=== PATIENT | female | born 1985 | race Caucasian/White ===

== ENCOUNTER → 2020-04-22 12:18 | Outpatient (CLI) | payer OTHER, SELFPAY ==
--- NOTE | 2020-04-22 12:22 | DI.RAD.S_ITS ---
PROCEDURE: XR TIBIA FIBULA RT 2V INDICATIONS: knee contusion, pain/swelling, r/o bony abnormality TECHNIQUE: 2 views of the tibia and fibula were acquired. COMPARISON: [facility], CR, XR KNEE LT 3V, 04/22/2020, 12:17. FINDINGS: Bones: No fractures or dislocations. No suspicious bony lesions. Soft tissues: No suspicious soft tissue calcifications or masses. IMPRESSION: No acute osseous abnormality. Dictated by: Jarrell Muhammad M.D. on 04/22/2020 at 12:43 Approved by: Jarrell Muhammad M.D. on 04/22/2020 at 12:43
--- NOTE | 2020-04-22 12:22 | DI.RAD.S_ITS ---
PROCEDURE: XR KNEE LT 3V INDICATIONS: knee contusion, pain/swelling, r/o bony abnormality TECHNIQUE: 3 views of the knee were acquired. COMPARISON: [facility], CR, XR TIBIA FIBULA LT 2V, 04/22/2020, 12:17. FINDINGS: Bones: No fractures or dislocations. There is a small lucency in the distal femur along the anterior cortex above the intercondylar notch. Soft tissues: No joint effusion. No suspicious soft tissue calcifications. IMPRESSION: 1. No fracture or dislocation. 2. A small lucency is noted in the distal femur along the anterior cortex above the intercondylar notch, most likely a bone cyst. If there is focal pain and tenderness, a follow-up examination or bone scan is suggested. Dictated by: Jarrell Muhammad M.D. on 04/22/2020 at 12:39 Approved by: Jarrell Muhammad M.D. on 04/22/2020 at 12:42
== END ==
PROVIDERS: PCP Family Medicine; Referring Provider Physician Assistant; Visit Provider Physician Assistant
DX: S80.02XA Contusion of left knee, initial encounter (principal); M25.562 Pain in left knee; X58.XXXA Exposure to other specified factors, initial encounter
CPT/HCPCS: 73562; 73590

== ENCOUNTER 2020-05-26 18:15 | Observation (INO) | payer OTHER, SELFPAY ==
[2020-05-26] VITALS (13 sets, daily range): BP systolic 116–137; BP diastolic 60–84; PULSE 89–126; RESP 9–23; TEMP 36.7–37.3; O2SAT 95–100; BMI 18.2; BMI 14.7
--- NOTE | 2020-05-26 18:37 | ED.GENADULT ---
HPI - General Adult General Chief complaint: Abdominal Pain Stated complaint: Severe Abd Pain Time Seen by Provider: 05/26/20 18:23 Source: patient Mode of arrival: Ambulatory Limitations: no limitations History of Present Illness HPI narrative: 34-year-old otherwise healthy female here for evaluation of lower bilateral right greater than left abdominal pain. She states that her pain started this morning shortly after she woke up. Went to bed last evening without any symptoms. Has had nausea but no vomiting. No prior abdominal surgeries. Has had multiple bowel movements today that did not change her abdominal pain. It was not diarrhea. She states that they were normal stools just more than what she normally would have an a 24 hour.. No urinary symptoms. No vaginal bleeding. Has not done anything for symptoms prior to arrival. Denied the need for pain and/or nausea medication. Related Data Home Medications Medication Instructions Recorded Confirmed levonorgestrel 20 mcg/24 hours (5 INTRAUTERINE 08/15/19 04/22/20 yrs) 52 mg intrauterine device loratadine 10 mg tablet 10 mg PO DAILY 08/15/19 04/22/20 Allergies Allergy/AdvReac Type Severity Reaction Status Date / Time peanut Allergy Unknown Verified 04/22/20 13:43 Penicillins Allergy Unknown Verified 04/22/20 13:43 tree nut Allergy Unknown Verified 04/22/20 13:43 Review of Systems Constitutional Constitutional: Denies fever(s) Cardiovascular Cardiovascular: Denies chest pain and Denies dyspnea Respiratory Respiratory: Denies dyspnea Gastrointestinal Gastrointestinal: Reports abdominal pain, Denies constipation, Denies diarrhea, Reports nausea and Denies vomiting Genitourinary Genitourinary: Denies dysuria Genitourinary: Denies dysuria Musculoskeletal Musculoskeletal: Denies arthralgias and Denies myalgias Integumentary/Breasts Skin/Breast: Denies rash Neurologic Neurologic: Denies behavioral changes Psychiatric Psychiatric: Denies behavioral changes Hematologic/Lymphatic Hematologic/Lymphatic: Denies easy bleeding and Denies easy bruising Allergic/Immunologic Allergic/Immunologic: Denies urticaria Patient History Medical History Abnormal endoscopy of upper gastrointestinal tract (Acute) Contusion, lower leg (Acute) Esophageal dilatation (Acute) Esophageal stricture (Acute) Family history of breast cancer in first degree relative (Acute) Knee contusion (Acute) Rosacea (Acute) Family History (Updated 08/15/19 @ 15:17 by Clifford Foley DO) Mother Cancer Father No problems noted. Social History Smoking Status: Former smoker Tobacco: How many years used: 5 alcohol intake: current (1-2 wine glasses/day ) Smoking Status: Former smoker alcohol intake frequency: 0-2 drinks per day Substance Use Type: does not use Exam Initial Vital Signs Initial Vital Signs: Vital Signs Temperature 98.0 F 05/26/20 18:30 Pulse Rate 126 H 05/26/20 18:30 Respiratory Rate 16 05/26/20 18:30 Blood Pressure 137/84 05/26/20 18:30 Pulse Oximetry 100 05/26/20 18:30 Const General: cooperative, comfortable, well developed and well groomed Limitations: mental status not altered HENMT Head: normal to inspection and normocephalic Resp Effort & Inspection: normal respiratory effort Auscultation: clear to auscultation bilaterally Cardio Rate: tachycardic Pulses: radial pulses present GI Inspection: non-distended Palpation: soft and tender (Bilateral lower abdomen with guarding no rebound) Skin Lesions: no lesions Rashes: no rashes Neuro General: patient alert, patient awake and patient oriented x3 Cognition: normal cognition Speech: speech normal Extrem General: normal to inspection and capillary refill normal Psych Appearance: grossly normal and well kempt Course Orders Ordered: ED Orders 05/26/20 18:19 EKG-12 Lead Stat 05/26/20 18:37 CT abdomen pelvis w con Stat 05/26/20 18:53 Complete Blood Count AUTO DIFF Stat Comprehensive Metabolic Panel Stat Lactate (Lactic Acid) Stat Lipase Stat Magnesium Routine Partial Thromboplastin Time Stat Procalcitonin Stat Prothrombin Time INR Stat 05/26/20 20:12 US pelvic complete Stat 05/26/20 22:11 Consult to General Surgery Stat 05/26/20 22:25 Consult to Obstetrics Stat 05/26/20 22:30 Blood Culture Stat 05/26/20 22:58 COVID19 -ED/INPAT/OR/L&D Stat 05/26/20 23:06 Consult to Dietitian, Adult Routine Consult to Discharge Planning Routine 05/27/20 05:00 Basic Metabolic Panel Routine Complete Blood Count AUTO DIFF Routine Hydromorphone HCl (Dilaudid) 0.5 mg IV Q6HR PRN PRN Reason: Pain, Moderate (4-6) Hydromorphone HCl (Dilaudid) 1 mg IV Q6HR PRN PRN Reason: Pain, Severe (7-10) Lactated Ringer's (Lactated Ringers) 1,000 mls @ 100 mls/hr IV CONT DANIEL Ceftriaxone Sodium/Dextrose (Rocephin) 2 gm in 50 mls @ 100 mls/hr IV Q24H DANIEL Ketorolac Tromethamine (Toradol) 15 mg IV Q6HR PRN PRN Reason: Pain, Moderate (4-6) Stop: 05/31/20 23:04 Naloxone HCl (Narcan) 0.2 mg IV Q2MIN PRN PRN Reason: Opiate Reversal Ondansetron HCl (Zofran) 4 mg IV Q6HR PRN PRN Reason: Nausea And Vomiting Discontinued Medications Sodium Chloride (Normal Saline 0.9%) 1,000 mls @ 1,000 mls/hr IV BOLUS ONE Stop: 05/26/20 19:36 Last Infusion: 05/26/20 21:48 Dose: 0 mls/hr Documented by: Admin: 05/26/20 19:32 Dose: 1,000 mls/hr Documented by: LISA Sodium Chloride (Normal Saline 0.9%) 1,000 mls @ 125 mls/hr IV CONT DANIEL Last Admin: 05/26/20 22:38 Dose: 125 mls/hr Documented by: YE Ceftriaxone Sodium/Dextrose (Rocephin) 1 gm in 50 mls @ 100 mls/hr IV NOW ONE Stop: 05/26/20 23:09 Last Admin: 05/26/20 22:46 Dose: 100 mls/hr Documented by: YE Ketorolac Tromethamine (Toradol) 30 mg IV NOW ONE Stop: 05/26/20 22:34 Last Admin: 05/26/20 22:42 Dose: 30 mg Documented by: YE Morphine Sulfate (Morphine) 4 mg IV NOW ONE Stop: 05/26/20 20:38 Last Admin: 05/26/20 20:40 Dose: 4 mg Documented by: LISA Vital Signs Vital signs: Vital Signs - 8 hr 05/26/20 18:30 05/26/20 19:00 05/26/20 19:03 Temperature 98.0 F Pulse Rate 126 H 105 H Respiratory Rate 16 12 Blood Pressure 137/84 125/72 Pulse Oximetry 100 99 05/26/20 19:30 05/26/20 20:00 05/26/20 20:30 Temperature Pulse Rate 103 H 104 H 109 H Respiratory Rate 9 L 13 15 Blood Pressure Pulse Oximetry 100 100 100 05/26/20 21:00 05/26/20 21:48 05/26/20 22:30 Temperature Pulse Rate 109 H 112 H 106 H Respiratory Rate 17 17 19 Blood Pressure Pulse Oximetry 98 97 97 05/26/20 22:56 05/26/20 23:00 Temperature Pulse Rate 96 H 93 H Respiratory Rate 23 19 Blood Pressure 116/76 116/72 Pulse Oximetry 96 95 Medical Decision Making Lab Data Lab results reviewed: Yes I reviewed the patient's lab results. Result diagrams: 05/26/20 18:53 05/26/20 18:53 Labs: Lab Results 05/26/20 05/26/20 05/26/20 Range/Units 18:53 18:53 18:53 WBC 17.5 H (4.5-11.0) X10^3/uL RBC 4.43 (4.0-5.2) X10^6/uL Hgb 14.3 (12.0-16.0) g/dL Hct 41.1 (36-46) % MCV 92.7 (80-100) fL MCH 32.2 (26-34) PG MCHC 34.7 (30-36) % RDW 11.4 L (11.6-14.8) % Plt Count 233 (150-400) X10^3/uL Neut % (Auto) 87.3 H (50-75) % Lymph % (Auto) 8.8 L (25-40) % [place] % (Auto) 3.3 (3-14) % Eos % (Auto) 0.3 L (2-4) % Baso % (Auto) 0.3 (0-2) % Neut # (Auto) 59347 H (8558-3384) /uL Lymph # (Auto) 1500 (2535-6829) /uL [place] # (Auto) 600 (0-900) /uL Eos # (Auto) 100 (0-450) /uL Baso # (Auto) 100 (0-100) /uL PT 12.4 (10.1-12.7) SECONDS INR 1.1 (0.9-1.3) APTT 31 (26.4-36.2) SECONDS Sodium 137 (137-145) mmol/L Potassium 3.7 (3.4-5.1) mmol/L Chloride 101 (98-107) mmol/L Carbon Dioxide 27 (22-32) mmol/L BUN 12 (7-17) mg/dL Creatinine 0.70 (0.52-1.04) mg/dL Estimated GFR > 60.0 (>60) mL/min BUN/Creatinine Ratio 17.1 (6-22) Glucose 109 H (70-100) mg/dL Lactate (0.7-2.1) mmol/L Calcium 9.5 (8.4-10.2) mg/dL Magnesium (1.6-2.3) mg/dL Total Bilirubin 2.1 H (0.2-1.3) mg/dL AST 25 (14-36) IU/L ALT 15 (<35) IU/L Alkaline Phosphatase 74 (38-126) U/L Total Protein 8.0 (6.3-8.2) g/dL Albumin 4.9 (3.5-5.0) g/dL Globulin 3.1 (1.7-4.1) g/dL Albumin/Globulin Ratio 1.6 (1.0-2.8) Lipase 49 (23-300) U/L Procalcitonin (<0.5) ng/mL COVID-19 PCR (Negative) 05/26/20 05/26/20 05/26/20 Range/Units 18:53 18:53 18:53 WBC (4.5-11.0) X10^3/uL RBC (4.0-5.2) X10^6/uL Hgb (12.0-16.0) g/dL Hct (36-46) % MCV (80-100) fL MCH (26-34) PG MCHC (30-36) % RDW (11.6-14.8) % Plt Count (150-400) X10^3/uL Neut % (Auto) (50-75) % Lymph % (Auto) (25-40) % [place] % (Auto) (3-14) % Eos % (Auto) (2-4) % Baso % (Auto) (0-2) % Neut # (Auto) (4659-1608) /uL Lymph # (Auto) (9858-9348) /uL [place] # (Auto) (0-900) /uL Eos # (Auto) (0-450) /uL Baso # (Auto) (0-100) /uL PT (10.1-12.7) SECONDS INR (0.9-1.3) APTT (26.4-36.2) SECONDS Sodium (137-145) mmol/L Potassium (3.4-5.1) mmol/L Chloride (98-107) mmol/L Carbon Dioxide (22-32) mmol/L BUN (7-17) mg/dL Creatinine (0.52-1.04) mg/dL Estimated GFR (>60) mL/min BUN/Creatinine Ratio (6-22) Glucose (70-100) mg/dL Lactate 1.2 (0.7-2.1) mmol/L Calcium (8.4-10.2) mg/dL Magnesium 1.7 (1.6-2.3) mg/dL Total Bilirubin (0.2-1.3) mg/dL AST (14-36) IU/L ALT (<35) IU/L Alkaline Phosphatase (38-126) U/L Total Protein (6.3-8.2) g/dL Albumin (3.5-5.0) g/dL Globulin (1.7-4.1) g/dL Albumin/Globulin Ratio (1.0-2.8) Lipase (23-300) U/L Procalcitonin < 0.05 (<0.5) ng/mL COVID-19 PCR (Negative) 05/26/20 Range/Units 22:58 WBC (4.5-11.0) X10^3/uL RBC (4.0-5.2) X10^6/uL Hgb (12.0-16.0) g/dL Hct (36-46) % MCV (80-100) fL MCH (26-34) PG MCHC (30-36) % RDW (11.6-14.8) % Plt Count (150-400) X10^3/uL Neut % (Auto) (50-75) % Lymph % (Auto) (25-40) % [place] % (Auto) (3-14) % Eos % (Auto) (2-4) % Baso % (Auto) (0-2) % Neut # (Auto) (2675-2531) /uL Lymph # (Auto) (8452-4775) /uL [place] # (Auto) (0-900) /uL Eos # (Auto) (0-450) /uL Baso # (Auto) (0-100) /uL PT (10.1-12.7) SECONDS INR (0.9-1.3) APTT (26.4-36.2) SECONDS Sodium (137-145) mmol/L Potassium (3.4-5.1) mmol/L Chloride (98-107) mmol/L Carbon Dioxide (22-32) mmol/L BUN (7-17) mg/dL Creatinine (0.52-1.04) mg/dL Estimated GFR (>60) mL/min BUN/Creatinine Ratio (6-22) Glucose (70-100) mg/dL Lactate (0.7-2.1) mmol/L Calcium (8.4-10.2) mg/dL Magnesium (1.6-2.3) mg/dL Total Bilirubin (0.2-1.3) mg/dL AST (14-36) IU/L ALT (<35) IU/L Alkaline Phosphatase (38-126) U/L Total Protein (6.3-8.2) g/dL Albumin (3.5-5.0) g/dL Globulin (1.7-4.1) g/dL Albumin/Globulin Ratio (1.0-2.8) Lipase (23-300) U/L Procalcitonin (<0.5) ng/mL COVID-19 PCR Negative (Negative) Point of Care Testing Test Results Negative Urine Dip Bedside Urine Glucose Negative Bedside Urine Bilirubin - Negative Bedside Urine Ketone - Negative Urine Specific [place] 1.025 Bedside Urine Occult Blood - Negative Bedside Urine pH 6.0 Bedside Urine Protein +/- 15 Bedside Urine Urobilinogen - Negative Bedside Urine Nitrite - Negative Bedside Urine Leukocytes - Negative Esterase Point of care testing: Point of Care Testing Test Results Negative Urine Dip Bedside Urine Glucose Negative Bedside Urine Bilirubin - Negative Bedside Urine Ketone - Negative Urine Specific [place] 1.025 Bedside Urine Occult Blood - Negative Bedside Urine pH 6.0 Bedside Urine Protein +/- 15 Bedside Urine Urobilinogen - Negative Bedside Urine Nitrite - Negative Bedside Urine Leukocytes - Negative Esterase Imaging Data CT scan - abdomen/pelvis: Radiologist's Impression: [address] [address] [address] Scan Report Signed Patient: Kathia ChackoMR#: [id number] : 1985Acct:[id number] Age/Sex: 34 / FDate of Service: 05/26/20 Loc: ED Accession Number: [id number] Procedure: CT abdomen pelvis w con Ordering Provider: Robbie Diego D.O. PROCEDURE: CT ABDOMEN PELVIS W CON INDICATIONS: Right lower quadrant abdominal pain TECHNIQUE: After the administration of intravenous contrast, 5 mm thick sections acquired from the diaphragm to the symphysis. 5 mm coronal and sagittal reformats were acquired. For radiation dose reduction, the following was used: automated exposure control, adjustment of mA and/or kV according to patient size. COMPARISON: None. FINDINGS: Image quality: Excellent. ABDOMEN: Lung bases: Lung bases are clear. Heart size is normal. Solid organs: Liver is normal in size and enhancement. Gallbladder is normal . Biliary system is non dilated. Pancreas enhances normally. Spleen is normal in size and enhancement. No adrenal nodules. Kidneys demonstrate normal size and enhancement, without hydronephrosis. Peritoneum and bowel: Bowel loops demonstrate normal wall thickness and caliber. No free fluid or air. The appendix cannot be seen. Nodes and vessels: No retroperitoneal or mesenteric adenopathy by size criteria. Aorta and inferior vena cava are normal in size. Miscellaneous: No ventral hernias. PELVIS: Genitourinary: Bladder wall thickness is normal. There is a T-shaped IUD within the uterus. The adnexal vasculature is mildly engorged. Small to moderate amount of free fluid in the right posterior adnexa. Of thin-walled ovoid cyst is present in the posterior right adnexa measuring about 2.3 cm. Miscellaneous: No inguinal hernias or adenopathy. Bones: No suspicious bony lesions. No vertebral body compression fractures. IMPRESSION: 1. Probable right ovarian cyst rupture, however appendicitis is not excluded as the appendix is not visible. 2. Adequate position of intrauterine device. Dictated by: Elyssa Le M.D. on 05/26/2020 at 19:56 Approved by: Elyssa Le M.D. on 05/26/2020 at 20:00 US - TRANSFORMER ASSEMBLY SUPERVISOR: Radiologist's Impression: [address] [address] Ultrasound Report Signed Patient: Clemencia Chacko#: [id number] : 1985Acct:[id number] Age/Sex: 34 / FDate of Service: 05/26/20 Loc: ED Accession Number: [id number] Procedure: US pelvic complete Ordering Provider: Robbie Diego D.O. PROCEDURE: US PELVIC COMPLETE INDICATIONS: RIGHT LOWER QUADRANT PAIN TECHNIQUE: Real-time scanning was performed of the pelvic organs, with image documentation. Additional endovaginal scanning was necessary due to incomplete visualization of the adnexal and endometrial structures by transabdominal scanning. COMPARISON: None. FINDINGS: Transabdominal scanning: Limited scanning through the kidneys shows no hydronephrosis. No pathologic free abdominal or pelvic fluid. Endovaginal scanning: Uterus: Uterus is anteverted and normal in size at 7.1 x 3.4 x 4.9 cm. The endometrium measures 3.6 mm in combined thickness. An IUD is in place. Myometrial echotexture is normal. Ovaries: The right ovary measures 3.7 x 2.4 x 3.9 cm. Left ovary measures 3.2 x 1.5 x 2.9 cm. The right ovary contains a hemorrhagic involuting cyst with lace-like septations. There is adjacent hemorrhagic free fluid. The left ovary has a normal follicular echotexture. Normal vascularity in each ovary. There is a possible tubular structure with bowel signature in the right lower quadrant anteriorly. No surrounding echogenic fat. No hyperemia. This measures 6 mm in diameter but is noncompressible. IMPRESSION: 1. Hemorrhagic right ovarian cyst with adjacent fluid suggesting recent rupture. 2. Possible right lower quadrant appendix without convincing signs to suggest acute appendicitis. 3. IUD in satisfactory position. Dictated by: Elyssa Le M.D. on 05/26/2020 at 22:15 Approved by: Elyssa Le M.D. on 05/26/2020 at 22:20 ECG Data Attestation: I personally reviewed and interpreted this ECG as follows: Prior ECG tracings: not available for review Interpretation: Sinus tachycardia Ventricular rate of 111 Normal axis Normal QRS Normal QTC No ST T wave changes MDM Narrative Medical decision making narrative: Patient initially declined the need for pain or nausea medication. CT scan does not definitively see the appendix however does not have any secondary signs of appendicitis. There was some concern about a right ovary cyst and potentially recently ruptured cyst. A small amount of free fluid in the pelvis. An ultrasound was ordered to further evaluate this. vtc technician stated that initially she thought that she identify the appendix on the ultrasound. The formal report shows a noncompressible structure but no signs of infection. This is not 100% convincing that this was the appendix that was seen. 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 The ultrasound did confirm the right-sided ovarian cyst. Patient does have leukocytosis and is also tachycardic despite pain medication. Has right lower quadrant abdominal pain. I feel clinically appendicitis is still very likely. I discussed the case with Dr. Garcia was on-call for General surgery who agreed that the patient could be admitted for observation and serial abdominal exams. He has the patient be admitted to the medicine service. I also discussed the case with Dr. torres is on-call for receiving room clerk who agreed to see the patient tomorrow morning. I discussed the case with STEPHAN Irene the night hospital provider. We will admit for further evaluation and treatment for presumed early appendicitis. I did discuss all these findings with the patient. Discussed the need for the admission. She expressed understanding and agreement. Discharge Plan Departure Patient Disposition: Admitted as Observation Clinical Impression: Tachycardia Abdominal pain Qualifiers: Abdominal location: right lower quadrant Qualified Code(s): R10.31 - Right lower quadrant pain Leukocytosis Qualifiers: Leukocytosis type: unspecified Qualified Code(s): D72.829 - Elevated white blood cell count, unspecified Admit Date/Time: 05/26/20 23:07 Admit Provider: Harry Irene
[2020-05-26 19:06] LABS: Add Manual Diff / Slide Review NO; Basophils Absolute Auto 100 /uL (0-100); Basophils Percent Auto 0.3 % (0-2); Eosinophils Absolute Auto 100 /uL (0-450); Eosinophils Percent Auto 0.3 % (2-4); Hematocrit 41.1 % (36-46); Hemoglobin 14.3 g/dL (12.0-16.0); Lymphocytes Absolute Auto 1500 /uL (1100-4500); Lymphocytes Percent Auto 8.8 % (25-40); Mean Corpuscular HGB Conc 34.7 % (30-36); Mean Corpuscular Hemoglobin 32.2 PG (26-34); Mean Corpuscular Volume 92.7 fL (80-100); Monocytes Absolute Auto 600 /uL (0-900); Monocytes Percent Auto 3.3 % (3-14); Neutrophils Absolute Auto 15300 /uL (1500-7000); Neutrophils Percent Auto 87.3 % (50-75); Platelet Count 233 X10^3/uL (150-400); Red Blood Cell Count 4.43 X10^6/uL (4.0-5.2); Red Cell Distribution Width 11.4 % (11.6-14.8); White Blood Cell Count 17.5 X10^3/uL (4.5-11.0)
[2020-05-26 19:13] LABS: INR 1.1 (0.9-1.3); Prothrombin Time 12.4 SECONDS (10.1-12.7)
[2020-05-26 19:16] LABS: PTT Partial Thromboplastin Tim 31 SECONDS (26.4-36.2)
[2020-05-26 19:17] LABS: Alanine Aminotransferase 15 IU/L (<35); Albumin 4.9 g/dL (3.5-5.0); Albumin Globulin Ratio 1.6 (1.0-2.8); Alkaline Phosphatase 74 U/L (38-126); Aspartate Aminotransferase 25 IU/L (14-36); BUN Creatinine Ratio 17.1 (6-22); Bilirubin Total 2.1 mg/dL (0.2-1.3); Blood Urea Nitrogen 12 mg/dL (7-17); Calcium 9.5 mg/dL (8.4-10.2); Carbon Dioxide 27 mmol/L (22-32); Chloride 101 mmol/L (98-107); Estimated Glomerular Filt Rate > 60.0 mL/min (>60); Globulin 3.1 g/dL (1.7-4.1); Glucose 109 mg/dL (70-100); HEMOLYSIS 19 (0-50); Lipase 49 U/L (23-300); Potassium 3.7 mmol/L (3.4-5.1); Sodium 137 mmol/L (137-145)
[2020-05-26] MEDS: SODIUM CHLORIDE 0.9% 1,000 ML 1000 ML IV (19:32)
--- NOTE | 2020-05-26 20:12 | DI.US.S_ITS ---
PROCEDURE: US PELVIC COMPLETE INDICATIONS: RIGHT LOWER QUADRANT PAIN TECHNIQUE: Real-time scanning was performed of the pelvic organs, with image documentation. Additional endovaginal scanning was necessary due to incomplete visualization of the adnexal and endometrial structures by transabdominal scanning. COMPARISON: None. FINDINGS: Transabdominal scanning: Limited scanning through the kidneys shows no hydronephrosis. No pathologic free abdominal or pelvic fluid. Endovaginal scanning: Uterus: Uterus is anteverted and normal in size at 7.1 x 3.4 x 4.9 cm. The endometrium measures 3.6 mm in combined thickness. An IUD is in place. Myometrial echotexture is normal. Ovaries: The right ovary measures 3.7 x 2.4 x 3.9 cm. Left ovary measures 3.2 x 1.5 x 2.9 cm. The right ovary contains a hemorrhagic involuting cyst with lace-like septations. There is adjacent hemorrhagic free fluid. The left ovary has a normal follicular echotexture. Normal vascularity in each ovary. There is a possible tubular structure with bowel signature in the right lower quadrant anteriorly. No surrounding echogenic fat. No hyperemia. This measures 6 mm in diameter but is noncompressible. IMPRESSION: 1. Hemorrhagic right ovarian cyst with adjacent fluid suggesting recent rupture. 2. Possible right lower quadrant appendix without convincing signs to suggest acute appendicitis. 3. IUD in satisfactory position. Dictated by: Elyssa Le M.D. on 05/26/2020 at 22:15 Approved by: Elyssa Le M.D. on 05/26/2020 at 22:20
[2020-05-26] MEDS: MORPHINE 4 MG/ML INJ IV (20:40)
[2020-05-26 22:18] LABS: Lactate (Lactic Acid) 1.2 mmol/L (0.7-2.1)
[2020-05-26] MEDS: SODIUM CHLORIDE 0.9% 1,000 ML 125 ML IV (22:38)
[2020-05-26] MEDS: KETOROLAC 60 MG/2 ML VIAL 30 MG IV (22:42)
[2020-05-26] MEDS: CEFTRIAXONE 1 GM/50 ML FROZ.PIGGY IV (22:46)
[2020-05-26 23:21] LABS: Magnesium 1.7 mg/dL (1.6-2.3)
[2020-05-26 23:37] LABS: Procalcitonin < 0.05 ng/mL (<0.5)
[2020-05-26 23:50] LABS: COVID19 -Nasal RAPID Negative (Negative)
--- NOTE | 2020-05-27 | PM.HP.1 ---
History of Present Illness History of Present Illness Date Patient Seen: 05/26/20 Time Patient Seen: 23:31 Chief complaint: Severe Abd Pain Narrative: Ms. Kathia Chacko is a 34-year-old female with past medical history significant for eosinophilic esophagitis, esophageal stricture status post esophageal dilation (03/2018) and rosacea who presents to the emergency department with bilateral lower abdominal pain. The patient states she was feeling fine yesterday went to bed and with bilateral lower abdominal pain right greater left. She reports the pain is been progressive throughout the day until upon arrival her pain was at a 7/10. Pain was worsened by laying on either side was most comfortable lying on her back with these bed. She took no medications to treat her symptoms. She has had associated complaints of diaphoresis, possible chills and nausea without vomiting and general malaise. She has also had multiple bowel movements which is not characteristic for that she describes as normal in color and consistency. She denies complaints of urinary symptoms with no urgency, frequency or burning. She is sexually active and in a monogamous relationship. She has a indwelling jonas IUD and has had no vaginal bleeding or discharge. She reports no recent illness, headaches dizziness or visual changes. She has no known COVID-19 exposures. She denies complaints of chest pain or palpitations, shortness of breath cough or wheezing. She did have an episode of severe heartburn earlier today which has since resolved. The patient reports abdominal pain as above that is constant and nonradiating. She denies flank or suprapubic pain. She does acknowledge bilateral anterior thigh achiness that she has had previously in association her menstrual periods. At baseline she is fully independent in all ADLs. Upon arrival she has a temperature 98.0?, tachycardic 126, blood pressure 137/87, respirations 16, with an SpO2 of 100. A CT of the abdomen pelvis notes abdominal solid organs are normal appearance with no biliary dilatation and pancreas is normal size and enhancement, bowel loops are normal in all thickness and caliber, appendix is not visualized, bladder is normal, T shaped IUD noted within the uterus with small amount of free fluid in the right posterior adnexa with a 2.3 cm ovarian cyst. Pelvic ultrasound is obtained finding hemorrhagic right ovarian cyst with adjacent fluid suggestive recent rupture, possible tubular structure with bowel signature in the right lower quadrant anteriorly without surrounding echogenic fat or hyperemia measures 6 mm diameter and is noncompressible. On laboratory analysis the patient is found to have a white count of 17.5 with elevated neutrophils at 87.3, hemoglobin 14.3, hematocrit of 41.1 and platelets 233. She has a PT of 12.4, INR 1.1 and PTT of 30. Her electrolytes are all within normal range with a BUN of 12 and creatinine is 0.7. Her nonfasting glucose is 109. Patient has elevated bilirubin at 2.1, AST of 25, ALT of 15 and alkaline phosphatase of 74. Lipase is 49 and albumin is 4.9. Lactic acid is 1.2. Procalcitonin is negative at less than 0.05. Covidien creatinine is negative. In the ER the patient is given 1 L of normal saline followed by normal saline 125 cc/hour. She received morphine 4 mg and Toradol IV. She has reported childhood history of penicillin allergy and is started on Rocephin 1 g in the ER. Dr. Garcia is contacted through the emergency department for general surgery as well as Dr. shanks is contacted for OBGYN who both agreed to consult. The patient is admitted to the medicine service for abdominal pain with leukocytosis, possible appendicitis possible ruptured ovarian cyst. Patient History Medical History Abnormal endoscopy of upper gastrointestinal tract (Acute) Contusion, lower leg (Acute) Eosinophilic esophagitis (Acute) Esophageal stricture (Acute) Family history of breast cancer in first degree relative (Acute) Knee contusion (Acute) Rosacea (Acute) Surgical History Esophageal dilatation (Acute) History of esophagogastroduodenoscopy (EGD) (Acute) Family & Social History Family History Mother Cancer Father No significant past medical history Sister No significant past medical history Safety & Behavioral: Feels Safe in Current Yes Environment Been Physically Hurt or No Threatened By a Person Tobacco & Substance use: Smoking Status Former smoker alcohol intake current alcohol intake frequency 0-2 drinks per day Substance Use Type does not use Meds Home Medications and Allergies Home Medications Medication Instructions Recorded Confirmed Type levonorgestrel 20 mcg/24 hours (5 INTRAUTERINE 08/15/19 04/22/20 History yrs) 52 mg intrauterine device loratadine 10 mg tablet 10 mg PO DAILY 08/15/19 04/22/20 History Allergies Allergy/AdvReac Type Severity Reaction Status Date / Time peanut Allergy Unknown Verified 04/22/20 13:43 Penicillins Allergy Unknown Verified 04/22/20 13:43 tree nut Allergy Unknown Verified 04/22/20 13:43 Review of Systems Review of Systems ROS: Yes All systems reviewed with the patient and are negative except as otherwise documented Exam Vital Signs (past 8 hours): - 05/26/20 18:30 05/26/20 19:00 05/26/20 19:03 Temperature 98.0 F Pulse Rate 126 H 105 H Respiratory Rate 16 12 Blood Pressure 137/84 125/72 Pulse Oximetry 100 99 05/26/20 19:30 05/26/20 20:00 05/26/20 20:30 Temperature Pulse Rate 103 H 104 H 109 H Respiratory Rate 9 L 13 15 Blood Pressure Pulse Oximetry 100 100 100 05/26/20 21:00 05/26/20 21:48 05/26/20 22:30 Temperature Pulse Rate 109 H 112 H 106 H Respiratory Rate 17 17 19 Blood Pressure Pulse Oximetry 98 97 97 05/26/20 22:56 05/26/20 23:00 05/26/20 23:30 Temperature Pulse Rate 96 H 93 H 100 H Respiratory Rate 23 19 19 Blood Pressure 116/76 116/72 120/60 Pulse Oximetry 96 95 97 Oxygen Delivery Method Room Air Narrative Exam Narrative: GENERAL APPEARANCE: well developed, slender female was uncomfortable appearing. HEENT: Normocephalic, PERRLA, conjunctiva clear, EOMs intact without nystagmus, no sinus tenderness to percussion, no rhinorrhea, mucous membranes are moist and pink without lesions or exudate. NECK/THYROID: neck supple, no JVD, no carotid bruit, no thyromegaly, trachea midline. LYMPH NODES: no cervical or supraclavicular lymphadenopathy. SKIN: [place], warm and dry, no visible lesions, rashes, ulcerations or petechiae. HEART: regular rate and rhythm, S1-S2, no murmur, no rubs or gallops, brisk capillary refill, no edema LUNGS: clear to auscultation bilaterally, no coarseness crackles or wheezing, no cough present CHEST: Symmetrical movement, no accessory muscle use, good tidal volume. ABDOMEN: Soft, dull to percussion, no distention, epigastric tenderness, generalized abdominal tenderness most prominent bilateral lower quadrants without guarding or rebound,, no organomegaly, no flank tenderness, no abdominal pain on heel strike, active bowel tones. BACK: Normal curvature, nontender to palpation EXTREMITIES: moves all extremities, strength is 5/5 and symmetrical, no deformities or joint effusions. NEUROLOGIC: AAO x4, no focal neurologic deficits, cranial nerves II-XII grossly intact, sensation intact to light touch, hearing grossly normal to speech. PSYCH: Good judgment, good insight, linear thought process, cooperative, appropriate with stable behavior Objective Labs Result Diagrams: 05/26/20 18:53 05/26/20 18:53 Labs: Laboratory Results - last 24 hr 05/26/20 05/26/20 05/26/20 18:53 18:53 18:53 WBC 17.5 H RBC 4.43 Hgb 14.3 Hct 41.1 MCV 92.7 MCH 32.2 MCHC 34.7 RDW 11.4 L Plt Count 233 Neut % (Auto) 87.3 H Lymph % (Auto) 8.8 L [place] % (Auto) 3.3 Eos % (Auto) 0.3 L Baso % (Auto) 0.3 Neut # (Auto) 87418 H Lymph # (Auto) 1500 [place] # (Auto) 600 Eos # (Auto) 100 Baso # (Auto) 100 PT 12.4 INR 1.1 APTT 31 Sodium 137 Potassium 3.7 Chloride 101 Carbon Dioxide 27 BUN 12 Creatinine 0.70 Estimated GFR > 60.0 BUN/Creatinine Ratio 17.1 Glucose 109 H Lactate Calcium 9.5 Magnesium Total Bilirubin 2.1 H AST 25 ALT 15 Alkaline Phosphatase 74 Total Protein 8.0 Albumin 4.9 Globulin 3.1 Albumin/Globulin Ratio 1.6 Lipase 49 Procalcitonin COVID-19 PCR 05/26/20 05/26/20 05/26/20 18:53 18:53 18:53 WBC RBC Hgb Hct MCV MCH MCHC RDW Plt Count Neut % (Auto) Lymph % (Auto) [place] % (Auto) Eos % (Auto) Baso % (Auto) Neut # (Auto) Lymph # (Auto) [place] # (Auto) Eos # (Auto) Baso # (Auto) PT INR APTT Sodium Potassium Chloride Carbon Dioxide BUN Creatinine Estimated GFR BUN/Creatinine Ratio Glucose Lactate 1.2 Calcium Magnesium 1.7 Total Bilirubin AST ALT Alkaline Phosphatase Total Protein Albumin Globulin Albumin/Globulin Ratio Lipase Procalcitonin < 0.05 COVID-19 PCR 05/26/20 22:58 WBC RBC Hgb Hct MCV MCH MCHC RDW Plt Count Neut % (Auto) Lymph % (Auto) [place] % (Auto) Eos % (Auto) Baso % (Auto) Neut # (Auto) Lymph # (Auto) [place] # (Auto) Eos # (Auto) Baso # (Auto) PT INR APTT Sodium Potassium Chloride Carbon Dioxide BUN Creatinine Estimated GFR BUN/Creatinine Ratio Glucose Lactate Calcium Magnesium Total Bilirubin AST ALT Alkaline Phosphatase Total Protein Albumin Globulin Albumin/Globulin Ratio Lipase Procalcitonin COVID-19 PCR Negative Assessment & Plan Assessment & Plan narrative: This is a 34-year-old female with a history of eosinophilia esophagitis and status post esophageal dilatation approximately 2 years ago who presents to the ER with a 1 day history of increasing abdominal obtained in bilateral lower quadrants with associated nausea, diaphoresis and malaise. 1. Acute abdominal pain bilateral lower quadrants probable appendicitis, present on admission, active -1 day of abdominal pain with associated nausea without vomiting, progressively worsening localizing to the right lower quadrant. -elevated WBCs 17.5, lactic acid is 1.2, negative procalcitonin, qSOFA score is 0, SOFA score is 2 -appendix is not visible on CT scan however ultrasound finds possible to be a structural with bowel signature in the right lower quadrant anteriorly without surrounding echogenic fat or hyperemia measuring 6 mm in diameter and noncompressible. -Dr. Garcia has been consulted through the emergency department, we appreciate his evaluation recommendations. -the patient will remain NPO pending surgical evaluation -IV lactated Ringer's at 100 cc/hour. -ordered Dilaudid 0.5-1 mg IV every 4 hours as needed. -order Zofran 4 mg IV every 4 6 hours as needed 2. Right ovarian cyst, possible ruptured hemorrhagic cyst, acute, present on admission, active. -patient is sexually active and mild in his relationship and denies risk of STD, vaginal bleeding or vaginal discharge. -CT scan identifies a 2.3 cm right ovarian cyst with moderate amount of free fluid in the right posterior adnexa. Ultrasound describes hemorrhagic right ovarian cyst with adjacent fluid suggestive recent rupture. -Dr. Shanks has agreed to consult, we appreciate her evaluation and recommendations. -the patient will remain NPO pending surgical evaluation -IV lactated Ringer's at 100 cc/hour. -pain medication as above. 3. History of the eosinophilic esophagitis with the esophageal stricture and heartburn, chronic, stable -patient with history of heartburn and episode of severe heartburn today. -ordered Protonix 40 mg IV x1 now and Protonix 40 mg daily. 4. Elevated bilirubin of unclear significance, present on admission -patient labs find a bilirubin elevated at 2.1 with normal transaminases and lipase. -imaging finds no hepatic pathology or steatosis, no biliary dilatation or stones noted. 5. Underweight, BMI 18.2, stable -Patient states her weight is stable at 120 pounds. She states she eats when she is hungry. -request toll bridge attendant consult. VTE prophylaxis: Bilateral SCDs, no chemical prophylaxis this time pending surgical evaluation. IV fluid: Lactated Ringer's 100 cc/hour Diet: NPO Code status: Full code, designates her significant other Nikos to be her surrogate decision maker. The patient admitted to the hospital due to the severity of her symptoms potential complications and adverse events. The patient is admitted as observation status pending surgical evaluation tomorrow. COVID-19 COVID-19 status: Negative Result date/Date tested (Pos, Neg/Pending): 05/26/20 Scores GCS Ingrid coma scale eye opening: Spontaneous [place] coma scale verbal response: Orientated [place] coma scale motor response: Obey commands [place] coma scale total score: 15 SOFA PaO2/FIO2: >=400 mmHg Platelets: >= 150 Bilirubin: 2.0-5.9 mg/dL Hypotension: MAP >= 70 mmHg [place] Coma Scale: 15 Renal: < 1.2 mg/dL SOFA Score: 2
[2020-05-27] MEDS: LACTATED RINGERS 1,000 ML 100 ML IV ×2 (00:37→11:15)
[2020-05-27] MEDS: PANTOPRAZOLE 40 MG VIAL IV ×2 (00:44→09:14)
[2020-05-27] MEDS: HYDROMORPHONE 1 MG INJ IV (00:45)
[2020-05-27] MEDS: CEFTRIAXONE 1 GM/50 ML FROZ.PIGGY IV (00:50)
[2020-05-27 05:21] VITALS: BP 97/47; PULSE 74; RESP 16; TEMP 36.6; O2SAT 100
[2020-05-27 05:44] LABS: Add Manual Diff / Slide Review NO; Basophils Absolute Auto 0 /uL (0-100); Basophils Percent Auto 0.2 % (0-2); Eosinophils Absolute Auto 0 /uL (0-450); Eosinophils Percent Auto 0.4 % (2-4); Hematocrit 34.7 % (36-46); Lymphocytes Absolute Auto 2100 /uL (1100-4500); Lymphocytes Percent Auto 19.6 % (25-40); Mean Corpuscular HGB Conc 34.7 % (30-36); Mean Corpuscular Hemoglobin 32.4 PG (26-34); Mean Corpuscular Volume 93.3 fL (80-100); Monocytes Absolute Auto 500 /uL (0-900); Monocytes Percent Auto 4.4 % (3-14); Neutrophils Absolute Auto 7900 /uL (1500-7000); Neutrophils Percent Auto 75.4 % (50-75); Platelet Count 191 X10^3/uL (150-400); Red Blood Cell Count 3.72 X10^6/uL (4.0-5.2); Red Cell Distribution Width 11.7 % (11.6-14.8); White Blood Cell Count 10.5 X10^3/uL (4.5-11.0)
[2020-05-27 05:57] LABS: BUN Creatinine Ratio 16.9 (6-22); Blood Urea Nitrogen 12 mg/dL (7-17); Calcium 8.6 mg/dL (8.4-10.2); Carbon Dioxide 29 mmol/L (22-32); Chloride 104 mmol/L (98-107); Estimated Glomerular Filt Rate > 60.0 mL/min (>60); Glucose 100 mg/dL (70-100); HEMOLYSIS < 15 (0-50); Potassium 4.4 mmol/L (3.4-5.1); Sodium 137 mmol/L (137-145)
[2020-05-27 09:00] VITALS: BP 119/62; PULSE 77; RESP 16; TEMP 36.7; O2SAT 99
--- NOTE | 2020-05-27 09:22 | P.HP_ITS ---
History of Present Illness History of Present Illness Date Patient Seen: 05/27/20 Time Patient Seen: 09:58 Chief complaint: Severe Abd Pain Narrative: This is a 34-year-old woman who was admitted to the hospital last night with right lower quadrant pain. She was evaluated in the emergency room she was afebrile with low grade tachycardialaboratory studies demonstrated white blood cell count 18. CT abdomen pelvis was notable for a right ovarian cyst with rupture a pelvic ultrasound confirmed these findings. There was no evidence of acute appendicitis or other acute intra-abdominal abnormalities on CT. This morning her abdominal pain is significantly improved, her tachycardia has resolved. She has received IV fluid resuscitation her repeat of her laboratory studies showed a white blood cell count is 10. No previous abdominal surgery. Patient History Medical History Abnormal endoscopy of upper gastrointestinal tract (Acute) Contusion, lower leg (Acute) Eosinophilic esophagitis (Acute) Esophageal stricture (Acute) Family history of breast cancer in first degree relative (Acute) Knee contusion (Acute) Rosacea (Acute) Surgical History Esophageal dilatation (Acute) History of esophagogastroduodenoscopy (EGD) (Acute) Family & Social History Family History Mother Cancer Father No significant past medical history Sister No significant past medical history Social History: household members significant other Prior Living Arrangements House Safety & Behavioral: Feels Safe in Current Yes Environment Been Physically Hurt or No Threatened By a Person Suicidal Ideation Description None Suicide Plan Description No Plan Tobacco & Substance use: Smoking Status Former smoker alcohol intake current alcohol intake frequency 0-2 drinks per day Substance Use Type does not use Meds Home Medications and Allergies Home Medications Medication Instructions Recorded Confirmed Type levonorgestrel 20 mcg/24 hours (5 INTRAUTERINE 08/15/19 04/22/20 History yrs) 52 mg intrauterine device loratadine 10 mg tablet 10 mg PO DAILY 08/15/19 04/22/20 History Allergies Allergy/AdvReac Type Severity Reaction Status Date / Time peanut Allergy Unknown Verified 04/22/20 13:43 Penicillins Allergy Unknown Verified 04/22/20 13:43 tree nut Allergy Unknown Verified 04/22/20 13:43 Review of Systems Review of Systems Narrative: A 10 point review of systems is negative except as noted in the HPI Exam Vital Signs (past 8 hours): - 05/27/20 05:21 Temperature 97.9 F Pulse Rate 74 Respiratory Rate 16 Blood Pressure 97/47 L Pulse Oximetry 100 Oxygen Delivery Method Room Air Oxygen Flow Rate 0 Narrative Exam Narrative: General-no acute distress, well nourished thin woman HEENT-moist mucous membranes, no scleral icterus Neck-supple, no lymphadenopathy Chest- non labored respirations, clear to auscultation bilaterally Cardiac-regular rate no peripheral edema Abdomen-tender right lower quadrant with palpation no peritonitis Extremities-warm, well perfused Neurological-alert and oriented, no focal deficits Objective Labs Result Diagrams: 05/27/20 05:05 05/27/20 05:05 Labs: Laboratory Results - last 24 hr 05/26/20 05/26/20 05/26/20 18:53 18:53 18:53 WBC 17.5 H RBC 4.43 Hgb 14.3 Hct 41.1 MCV 92.7 MCH 32.2 MCHC 34.7 RDW 11.4 L Plt Count 233 Neut % (Auto) 87.3 H Lymph % (Auto) 8.8 L [place] % (Auto) 3.3 Eos % (Auto) 0.3 L Baso % (Auto) 0.3 Neut # (Auto) 92122 H Lymph # (Auto) 1500 [place] # (Auto) 600 Eos # (Auto) 100 Baso # (Auto) 100 PT 12.4 INR 1.1 APTT 31 Sodium 137 Potassium 3.7 Chloride 101 Carbon Dioxide 27 BUN 12 Creatinine 0.70 Estimated GFR > 60.0 BUN/Creatinine Ratio 17.1 Glucose 109 H Lactate Calcium 9.5 Magnesium Total Bilirubin 2.1 H AST 25 ALT 15 Alkaline Phosphatase 74 Total Protein 8.0 Albumin 4.9 Globulin 3.1 Albumin/Globulin Ratio 1.6 Lipase 49 Procalcitonin COVID-19 PCR 05/26/20 05/26/20 05/26/20 18:53 18:53 18:53 WBC RBC Hgb Hct MCV MCH MCHC RDW Plt Count Neut % (Auto) Lymph % (Auto) [place] % (Auto) Eos % (Auto) Baso % (Auto) Neut # (Auto) Lymph # (Auto) [place] # (Auto) Eos # (Auto) Baso # (Auto) PT INR APTT Sodium Potassium Chloride Carbon Dioxide BUN Creatinine Estimated GFR BUN/Creatinine Ratio Glucose Lactate 1.2 Calcium Magnesium 1.7 Total Bilirubin AST ALT Alkaline Phosphatase Total Protein Albumin Globulin Albumin/Globulin Ratio Lipase Procalcitonin < 0.05 COVID-19 PCR 05/26/20 05/27/20 05/27/20 22:58 05:05 05:05 WBC 10.5 RBC 3.72 L Hgb 12.0 Hct 34.7 L MCV 93.3 MCH 32.4 MCHC 34.7 RDW 11.7 Plt Count 191 Neut % (Auto) 75.4 H Lymph % (Auto) 19.6 L [place] % (Auto) 4.4 Eos % (Auto) 0.4 L Baso % (Auto) 0.2 Neut # (Auto) 7900 H Lymph # (Auto) 2100 [place] # (Auto) 500 Eos # (Auto) 0 Baso # (Auto) 0 PT INR APTT Sodium 137 Potassium 4.4 Chloride 104 Carbon Dioxide 29 BUN 12 Creatinine 0.71 Estimated GFR > 60.0 BUN/Creatinine Ratio 16.9 Glucose 100 Lactate Calcium 8.6 Magnesium Total Bilirubin AST ALT Alkaline Phosphatase Total Protein Albumin Globulin Albumin/Globulin Ratio Lipase Procalcitonin COVID-19 PCR Negative Assessment & Plan Assessment & Plan narrative: 34-year-old female admitted to the hospital for acute abdominal pain. She has right lower quadrant pain with palpation no peritonitis and her pain is significantly improved from the time of admission. I reviewed her CT abdomen pelvis which demonstrates a right ovarian cyst with possible rupture. There is no evidence of acute appendicitis or other acute intra-abdominal process. The appendix was not visualized however it is quite unlikely that her appendix would be acutely inflamed but not demonstrated the CT. In addition her white blood cell count on admission was 18 it is now normal at 10 today, in addition her procalcitonin is normal. I suspect this is because she was dehydrated and has now been resuscitated. From my standpoint consult ation with OBGYN, diet as tolerated, pain control and discharge when stable with appropriate return precautions. Quality VTE Deep Vein Thrombosis/Pulmonary Embolism Present on Admission: No
--- NOTE | 2020-05-27 10:39 | CM.DANOTE ---
DCP/Assessment: Reviewed chart. Patient is a 34yr old female admitted to [facility] with abdominal pain. PCP is Dr. Foley. Primary payor is 1)[employer]asper [employer] 2)Self pay. Met with patient and significant other/Nikos at bedside explained CM/SW role. Patient reports that she is completely I with all ADL's. Currently patient is NPO waiting for CHART CLERK consult. Appendicitis was ruled out by surgery. Patient hopes to either go home or have procedure today. It is anticipated that patient may have cyst(s) that possibly ruptured. P: Anticipate home when medically stable. DEONTE Merino Discharge Planning/Care Management CM Discharge Assessment Start: 05/27/20 09:24 Freq: Status: Active Protocol: Document 05/27/20 09:36 KJS (Rec: 05/27/20 09:40 KJS [id number]) Discharge Planning Assessment Assigned Dredge Operator DEONTE Merino Contact Information Nikos Palma (SEJENT other [phone] Advance Directives? No Advance Directives on File No History Provided By Patient,Significant Other, Medical Record Prior Living Arrangements House Household Members significant other Type of transporation used prior to Drives own vehicle admit Willing to Return to Facility? Yes Independent with ADL's Yes Is patient alert and oriented? Yes Caregiver for Another No Barriers to Discharge No Discharge Plan Home Transportation Arrangement Significant other to provide transport. Referrals Initiated None needed Whiteboard Updated in Patient Room with Yes name and ext. # of Dredge Operator Review Status In Process Next Review Type Continued Stay Review Document 05/27/20 10:38 KJS (Rec: 05/27/20 10:39 KJS [id number]) Discharge Planning Assessment Assigned Dredge Operator DEONTE Merino Contact Information Nikos Palma ([employer] other)#[phone] Advance Directives? No Advance Directives on File No History Provided By Patient,Significant Other, Medical Record Prior Living Arrangements House Household Members significant other Type of transporation used prior to Drives own vehicle admit Willing to Return to Facility? Yes Independent with ADL's Yes Is patient alert and oriented? Yes Caregiver for Another No Barriers to Discharge No Discharge Plan Home Transportation Arrangement Significant other to provide transport. Referrals Initiated None needed Whiteboard Updated in Patient Room with Yes name and ext. # of Dredge Operator Review Status In Process Next Review Type Continued Stay Review
[2020-05-27] MEDS: KETOROLAC 30 MG/ML VIAL IV (10:49)
[2020-05-27 11:42] VITALS: BP 120/68; PULSE 70; RESP 16; TEMP 36.6; O2SAT 100
--- NOTE | 2020-05-27 12:38 | PM.CN ---
History of Present Illness Consult details Date Patient Seen: 05/27/20 Time Patient Seen: 12:15 Chief complaint: Severe Abd Pain Reason for consult: Repeat lower quadrant pain Requesting provider: Christelle Hill Narrative: This patient is a 34-year-old P0 admitted from the emergency room with severe abdominal pain especially located to the right lower quadrant in the setting of nausea and leukocytosis. The patient reports feeling nauseous yesterday, with whole abdominal pain and heartburn. She presented to the emergency room when the pain got severe, and again the localized to the right lower quadrant. Initial imaging revealed a 2.2 cm hemorrhagic ovarian cyst with scant free fluid in the pelvis, and an abnormal structure in the right lower quadrant concerning for appendicitis. She was admitted for pain control and treated with empiric antibiotics in the ER. She denies any diarrhea, emesis, fevers, chills, abnormal vaginal bleeding, headaches, or any other symptoms. She reports that she has had a Mirena for 4 years, and had a Mirena prior to that. She has a history of ruptured ovarian cyst 10 years ago that did not require surgical intervention. 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 She denies any contributory medical, surgical, family, or social history. Meds Home Medications and Allergies Home Medications Medication Instructions Recorded Confirmed Type levonorgestrel 20 mcg/24 hours (5 INTRAUTERINE 08/15/19 04/22/20 History yrs) 52 mg intrauterine device loratadine 10 mg tablet 10 mg PO DAILY 08/15/19 04/22/20 History Allergies Allergy/AdvReac Type Severity Reaction Status Date / Time peanut Allergy Unknown Verified 04/22/20 13:43 Penicillins Allergy Unknown Verified 04/22/20 13:43 tree nut Allergy Unknown Verified 04/22/20 13:43 Review of Systems Constitutional Constitutional: Reports as per HPI Cardiovascular Cardiovascular: Reports system reviewed and no additional complaints, except as documented Respiratory Respiratory: Reports system reviewed and no additional complaints, except as documented Gastrointestinal Gastrointestinal: Reports as per HPI Genitourinary Genitourinary: Reports system reviewed and no additional complaints, except as documented Neurologic Neurologic: Reports system reviewed and no additional complaints, except as documented Exam Vital Signs (past 8 hours): - 05/27/20 05:21 05/27/20 09:00 05/27/20 11:42 Temperature 97.9 F 98.1 F 97.9 F Pulse Rate 74 77 70 Respiratory Rate 16 16 16 Blood Pressure 97/47 L 119/62 120/68 Pulse Oximetry 100 99 100 Oxygen Delivery Method Room Air Oxygen Flow Rate 0 Const General: cooperative, healthy appearing and comfortable Other: Patient is sitting up in bed, eating lunch GI Palpation: soft and No guarding Other: Abdomen soft, mildly tender in upper quadrants, moderately tender in left and right lower quadrants. On exam and per patient report, tenderness equal in lower quadrants. No masses palpable. Other: Pelvic exam deferred after discussion with patient. Skin General: no rashes or lesions noted Extrem General: normal to inspection Objective Labs Result Diagrams: 05/27/20 05:05 05/27/20 05:05 Labs: Laboratory Results - last 24 hr 05/26/20 05/26/20 05/26/20 18:53 18:53 18:53 WBC 17.5 H RBC 4.43 Hgb 14.3 Hct 41.1 MCV 92.7 MCH 32.2 MCHC 34.7 RDW 11.4 L Plt Count 233 Neut % (Auto) 87.3 H Lymph % (Auto) 8.8 L [place] % (Auto) 3.3 Eos % (Auto) 0.3 L Baso % (Auto) 0.3 Neut # (Auto) 86386 H Lymph # (Auto) 1500 [place] # (Auto) 600 Eos # (Auto) 100 Baso # (Auto) 100 PT 12.4 INR 1.1 APTT 31 Sodium 137 Potassium 3.7 Chloride 101 Carbon Dioxide 27 BUN 12 Creatinine 0.70 Estimated GFR > 60.0 BUN/Creatinine Ratio 17.1 Glucose 109 H Lactate Calcium 9.5 Magnesium Total Bilirubin 2.1 H AST 25 ALT 15 Alkaline Phosphatase 74 Total Protein 8.0 Albumin 4.9 Globulin 3.1 Albumin/Globulin Ratio 1.6 Lipase 49 Procalcitonin COVID-19 PCR 05/26/20 05/26/20 05/26/20 18:53 18:53 18:53 WBC RBC Hgb Hct MCV MCH MCHC RDW Plt Count Neut % (Auto) Lymph % (Auto) [place] % (Auto) Eos % (Auto) Baso % (Auto) Neut # (Auto) Lymph # (Auto) [place] # (Auto) Eos # (Auto) Baso # (Auto) PT INR APTT Sodium Potassium Chloride Carbon Dioxide BUN Creatinine Estimated GFR BUN/Creatinine Ratio Glucose Lactate 1.2 Calcium Magnesium 1.7 Total Bilirubin AST ALT Alkaline Phosphatase Total Protein Albumin Globulin Albumin/Globulin Ratio Lipase Procalcitonin < 0.05 COVID-19 PCR 05/26/20 05/27/20 05/27/20 22:58 05:05 05:05 WBC 10.5 RBC 3.72 L Hgb 12.0 Hct 34.7 L MCV 93.3 MCH 32.4 MCHC 34.7 RDW 11.7 Plt Count 191 Neut % (Auto) 75.4 H Lymph % (Auto) 19.6 L [place] % (Auto) 4.4 Eos % (Auto) 0.4 L Baso % (Auto) 0.2 Neut # (Auto) 7900 H Lymph # (Auto) 2100 [place] # (Auto) 500 Eos # (Auto) 0 Baso # (Auto) 0 PT INR APTT Sodium 137 Potassium 4.4 Chloride 104 Carbon Dioxide 29 BUN 12 Creatinine 0.71 Estimated GFR > 60.0 BUN/Creatinine Ratio 16.9 Glucose 100 Lactate Calcium 8.6 Magnesium Total Bilirubin AST ALT Alkaline Phosphatase Total Protein Albumin Globulin Albumin/Globulin Ratio Lipase Procalcitonin COVID-19 PCR Negative Assessment & Plan Assessment & Plan narrative: This patient is imaging and initial presentation were reviewed, the patient appears to have had a hemorrhagic right ovarian cyst. The cyst is not large, there is a scant amount of free fluid in the pelvis, the patient is otherwise stable today. I discussed with the patient that this is not necessarily explain her whole abdominal pain and leukocytosis, but these have now resolved. The patient's pain is improved after multiple doses of IV Toradol. I discussed with the patient that hemorrhagic ovarian cysts can take 1-2 weeks to improve, and that I would recommend NSAIDs around the clock for at least 48 hours with as needed symptomatically after that. She can add Tylenol as needed for breakthrough pain. We discussed that she may have some soreness with movement and intercourse for 1-2 weeks. We discussed that these are most often self-limited, and discussed precautions for return to the ER such as symptoms of ongoing heavy bleeding leading to anemia or ovarian torsion. We discussed that if her pain is resolving, she does not need to follow up in clinic until an indicated repeat ultrasound in 2-3 months to assess for cyst resolution. If her symptoms worsen or do not improve, she should call the clinic or come to the emergency room. The above was discussed with Dr. Hill. 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
--- NOTE | 2020-05-27 13:20 | PC.NURSE ---
Day shift: Pt taken to car driven by her spouse by this medical underwriter in a WC. Paperwork signed and all questions answered. No new MD scripts. Pt has all personal belongings. Pt's pain 09/22 upon d/c. Pt happy to be going home.
--- NOTE | 2020-05-27 14:43 | P.DS_ITS ---
History of Present Illness History of Present Illness Date Patient Seen: 05/27/20 Chief complaint: Severe Abd Pain Narrative: Ms. Kathia Chacko is a 34-year-old female with past medical history significant for eosinophilic esophagitis, esophageal stricture status post esophageal dilation (03/2018) and rosacea who presents to the emergency department with bilateral lower abdominal pain. The patient states she was feeling fine yesterday went to bed and with bilateral lower abdominal pain right greater left. She reports the pain is been progressive throughout the day until upon arrival her pain was at a 7/10. Pain was worsened by laying on either side was most comfortable lying on her back with these bed. She took no medications to treat her symptoms. She has had associated complaints of diaphoresis, possible chills and nausea without vomiting and general malaise. She has also had multiple bowel movements which is not characteristic for that she describes as normal in color and consistency. She denies complaints of urinary symptoms with no urgency, frequency or burning. She is sexually active and in a monogamous relationship. She has a indwelling jonas IUD and has had no vaginal bleeding or discharge. She reports no recent illness, headaches dizziness or visual changes. She has no known COVID-19 exposures. She denies complaints of chest pain or palpitations, shortness of breath cough or wheezing. She did have an episode of severe heartburn earlier today which has since resolved. The patient reports abdominal pain as above that is constant and nonradiating. She denies flank or suprapubic pain. She does acknowledge bilateral anterior thigh achiness that she has had previously in association her menstrual periods. At baseline she is fully independent in all ADLs. Upon arrival she has a temperature 98.0?, tachycardic 126, blood pressure 137/87, respirations 16, with an SpO2 of 100. A CT of the abdomen pelvis notes abdominal solid organs are normal appearance with no biliary dilatation and pancreas is normal size and enhancement, bowel loops are normal in all thickness and caliber, appendix is not visualized, bladder is normal, T shaped IUD noted within the uterus with small amount of free fluid in the right posterior adnexa with a 2.3 cm ovarian cyst. Pelvic ultrasound is obtained finding hemorrhagic right ovarian cyst with adjacent fluid suggestive recent rupture, possible tubular structure with bowel signature in the right lower quadrant anteriorly without surrounding echogenic fat or hyperemia measures 6 mm diameter and is noncompressible. On laboratory analysis the patient is found to have a white count of 17.5 with elevated neutrophils at 87.3, hemoglobin 14.3, hematocrit of 41.1 and platelets 233. She has a PT of 12.4, INR 1.1 and PTT of 30. Her electrolytes are all within normal range with a BUN of 12 and creatinine is 0.7. Her nonfasting glucose is 109. Patient has elevated bilirubin at 2.1, AST of 25, ALT of 15 and alkaline phosphatase of 74. Lipase is 49 and albumin is 4.9. Lactic acid is 1.2. Procalcitonin is negative at less than 0.05. Covidien creatinine is negative. In the ER the patient is given 1 L of normal saline followed by normal saline 125 cc/hour. She received morphine 4 mg and Toradol IV. She has reported childhood history of penicillin allergy and is started on Rocephin 1 g in the ER[address] Dr. Garcia is contacted through the emergency department for general surgery as well as Dr. shanks is contacted for OBGYN who both agreed to consult. The patient is admitted to the medicine service for abdominal pain with leukocytosis, possible appendicitis possible ruptured ovaria n cyst. Discharge Providers Provider Date of admission: 05/26/20 23:07 Discharge Date: 05/27/20 Primary care physician: Clifford Foley DO Consults: 05/26/20 22:11 Consult to General Surgery Stat Comment: Consulting Provider: Jimmie Garcia Reason for consultation: possible appendicitis Has provider been notified: Yes 05/26/20 22:25 Consult to Obstetrics Stat Comment: Consulting Provider: Leona Shanks Reason for consultation: ovarian cyst Has provider been notified: Yes 05/26/20 23:06 Consult to Dietitian, Adult Routine Comment: Reason For Exam: Underweight, BMI 18.2 Consult to Discharge Planning Routine Comment: Discharge provider: Christelle Hill MD Summary Hospital Course Discharge Diagnosis: 1. Right ovarian cyst rupture 2. Abdominal pain, no evidence of acute appendicitis Hospital Course: Patient was admitted to the hospital for acute abdominal pain. CT scan of the abdomen and pelvis did not visualize the appendix. Pelvic ult rasound did show an ovarian cyst rupture. Patient was seen in consultation by Dr. Garcia from General surgery. He confirmed and concluded that there was no evidence to suggest appendicitis. Patient's white count improved from 17.5-10. She was given IV hydration. Her pain improved with Tylenol and Toradol. Patient's diet was advanced. She was seen in consultation by Dr. Shanks. The patient's diagnosis of a right ovarian cyst rupture was confirmed. She discussed with the patient plans for follow-up as an outpatient with recommendations for pelvic ultrasound again in 8-12 weeks. Patient was deemed appropriate for discharge and arrangements were made for her to discharge home. Status at Discharge Cognitive/behavioral status at discharge: oriented Functional status at discharge: independent ambulation Overall status at discharge: patient is not back to baseline Time Spent with Patient Time spent: Less than 30 minutes Exam Vital Signs (past 8 hours): - 05/27/20 09:00 05/27/20 11:42 Temperature 98.1 F 97.9 F Pulse Rate 77 70 Respiratory Rate 16 16 Blood Pressure 119/62 120/68 Pulse Oximetry 99 100 Oxygen Delivery Method Room Air Oxygen Flow Rate 0 Narrative Exam Narrative: Pleasant female with minimal abdominal pain Lungs: Clear to auscultation Cardiac exam: Regular rate and rhythm normal S1-S2 Abdomen: Soft, tender in the left quadrant and right side, no rebound tenderness, no board-like rigidity Extremities: No edema Objective Labs Result Diagrams: 05/27/20 05:05 05/27/20 05:05 Labs: Laboratory Results - last 24 hr 05/26/20 05/26/20 05/26/20 18:53 18:53 18:53 WBC 17.5 H RBC 4.43 Hgb 14.3 Hct 41.1 MCV 92.7 MCH 32.2 MCHC 34.7 RDW 11.4 L Plt Count 233 Neut % (Auto) 87.3 H Lymph % (Auto) 8.8 L [place] % (Auto) 3.3 Eos % (Auto) 0.3 L Baso % (Auto) 0.3 Neut # (Auto) 27248 H Lymph # (Auto) 1500 [place] # (Auto) 600 Eos # (Auto) 100 Baso # (Auto) 100 PT 12.4 INR 1.1 APTT 31 Sodium 137 Potassium 3.7 Chloride 101 Carbon Dioxide 27 BUN 12 Creatinine 0.70 Estimated GFR > 60.0 BUN/Creatinine Ratio 17.1 Glucose 109 H Lactate Calcium 9.5 Magnesium Total Bilirubin 2.1 H AST 25 ALT 15 Alkaline Phosphatase 74 Total Protein 8.0 Albumin 4.9 Globulin 3.1 Albumin/Globulin Ratio 1.6 Lipase 49 Procalcitonin COVID-19 PCR 05/26/20 05/26/20 05/26/20 18:53 18:53 18:53 WBC RBC Hgb Hct MCV MCH MCHC RDW Plt Count Neut % (Auto) Lymph % (Auto) [place] % (Auto) Eos % (Auto) Baso % (Auto) Neut # (Auto) Lymph # (Auto) [place] # (Auto) Eos # (Auto) Baso # (Auto) PT INR APTT Sodium Potassium Chloride Carbon Dioxide BUN Creatinine Estimated GFR BUN/Creatinine Ratio Glucose Lactate 1.2 Calcium Magnesium 1.7 Total Bilirubin AST ALT Alkaline Phosphatase Total Protein Albumin Globulin Albumin/Globulin Ratio Lipase Procalcitonin < 0.05 COVID-19 PCR 05/26/20 05/27/20 05/27/20 22:58 05:05 05:05 WBC 10.5 RBC 3.72 L Hgb 12.0 Hct 34.7 L MCV 93.3 MCH 32.4 MCHC 34.7 RDW 11.7 Plt Count 191 Neut % (Auto) 75.4 H Lymph % (Auto) 19.6 L [place] % (Auto) 4.4 Eos % (Auto) 0.4 L Baso % (Auto) 0.2 Neut # (Auto) 7900 H Lymph # (Auto) 2100 [place] # (Auto) 500 Eos # (Auto) 0 Baso # (Auto) 0 PT INR APTT Sodium 137 Potassium 4.4 Chloride 104 Carbon Dioxide 29 BUN 12 Creatinine 0.71 Estimated GFR > 60.0 BUN/Creatinine Ratio 16.9 Glucose 100 Lactate Calcium 8.6 Magnesium Total Bilirubin AST ALT Alkaline Phosphatase Total Protein Albumin Globulin Albumin/Globulin Ratio Lipase Procalcitonin COVID-19 PCR Negative Discharge Assessment & Plan Assessment and Plan Assessment: 1. Right ovarian cyst rupture Plan of Treatment: Ibuprofen and Tylenol as needed Outpatient pelvic ultrasound repeated in 8-12 weeks Discharge Plan Discharge Plan Patient Disposition: Home Discharge orders & Medications Prescriptions: Continued Mirena 20 mcg/24 hours (5 yrs) 52 mg intrauterine device intrauterine RF: 0 loratadine [Claritin] 10 mg tablet 10 mg PO DAILY RF: 0 Follow up/Referrals: Clifford Foley DO [Primary Care Provider] - Discharge Health Status Health Concerns: repeat pelvic ultrasound in 8-12 weeks Diet/Activity/Treatments Diet: Diet as Tolerated Skin/Wound/Dressing Care Report to your healthcare provider any signs of infection, such as:: chills, fev er and increased pain Visit Report/Discharge Packet Instructions: DI for Ovarian Cyst, How to Prevent Falls Visit Report Forms: Patient Portal/API, Stroke Signs & Symptoms Discharge Data Primary Care Provider: Clifford Foley Attending Provider: Harry Irene Admit Date/Time: 05/26/20 23:07 Discharges patient from system. Discharge Date/Time: 05/27/20 13:22 Quality VTE Deep Vein Thrombosis/Pulmonary Embolism Present on Admission: No
--- NOTE | 2020-05-30 22:18 | PC.NURSE ---
Late Entry; Rocephin infusion initiated on 05/27 at 00:50, complete at 01:21.
== END 2020-05-27 13:22 | disposition home or self-care (01) ==
LOC: ED 22:41 → AC 23:08
PROVIDERS: Admitting Provider Nurse Practitioner Adult Health; Emergency Provider Emergency Medicine; PCP Family Medicine; Visit Provider Nurse Practitioner Adult Health
DX: N83.201 Unspecified ovarian cyst, right side (principal); R10.31 Right lower quadrant pain; Z11.59 Encounter for screening for other viral diseases
CPT/HCPCS: 36415; 74177; 76830; 76856; 80048; 80053; 81003; 81025; 83605; 83690; 83735; 84145; 85025; 85610; 85730; 87040; 87635; 93005; 93010; 96361; 96365; 96366; 96375; 96376; 99224; 99285; G0378; C9113; J1170; J1885; J2270; Q9967